=== PATIENT | female | born 1980 | race Caucasian/White ===

== ENCOUNTER 2017-01-16 06:46 | Day surgery (SDC) | payer OTHER ==
[~2017-01-16] VITALS: Ht 157.5 cm; Wt 54.4 kg
[2017-01-16] MEDS ORDERED: BUPIVACAINE-MPF 0.25% 30 ML VIAL INJ ONE (09:10)
[2017-01-16] MEDS ORDERED: DEXAMETHASONE 4 MG/ML VIAL IVP ONE (10:11)
[2017-01-16] MEDS ORDERED: SEVOFLURANE 250 ML BTL INH ONE (10:11)
[2017-01-16] MEDS ORDERED: ONDANSETRON 4 MG/2 ML VIAL IVP ONE ×2 (10:11→12:40)
[2017-01-16] MEDS ORDERED: PROPOFOL 200 MG/20 ML VIAL IV ONE (10:11)
[2017-01-16] MEDS ORDERED: KETOROLAC 30 MG/ML VIAL IVP ONE (10:11)
[2017-01-16] MEDS ORDERED: fentaNYL 0.05 MG/ML VIAL ONE (10:13)
[2017-01-16] MEDS ORDERED: HYDROmorphone 1 MG/ML AMP IVP PRN ×2 (10:40→11:35)
[2017-01-16] MEDS ORDERED: ONDANSETRON 4 MG/2 ML VIAL IVP PRN (10:40)
[2017-01-16] MEDS ORDERED: MORPHINE SULFATE 2 MG/ML SYR IVP PRN (11:35)
[2017-01-16] MEDS ORDERED: ONDANSETRON 4 MG/2 ML VIAL IV PRN (11:35)
[2017-01-16] MEDS ORDERED: MORPHINE SULFATE 4 MG/ML SYR IV PRN (11:35)
[2017-01-16] MEDS ORDERED: HYDROcodone/APAP 5/325 MG 1 TAB TAB PO PRN (11:35)
[2017-01-16] MEDS ORDERED: HYDROmorphone 1 MG/ML AMP IVP ONE (12:13)
== END 2017-01-16 13:25 | disposition home or self-care (01) ==
LOC: MMU 06:46 → MDS 06:46
PROVIDERS: ATTEND Surgery
DX: M67.432 Ganglion, left wrist (principal); Z79.899 Other long term (current) drug therapy
CPT/HCPCS: 25111; 71010; J0690; J1100; J1170; J1885; J2405; J2704; J3010; J3490; J7060; J7120; 88304

== ENCOUNTER 2017-02-23 18:51 | Emergency (ER) | payer OTHER ==
[~2017-02-23] VITALS: Ht 154.9 cm; Wt 55.5 kg
[2017-02-23 19:03] VITALS: BP 141/91
--- NOTE | 2017-02-23 19:25 | NUR ---
36/F C/O 12/31 RLQ PAIN RADIATING TO RT FLANK, ACUTE ONSET, GRADUALLY WORSENING SINCE 1300 TODAY. PT REPORTS N/V, DENIES HEMOTYPSIS, FEVER/CHILLS. ALSO REPORTS FEELING CONSTIPATED AND DYSURIA, DENIES HEMATURIA. BS ACTIVE X4, TENDERNESS TO RLQ NOTED. DENIES PMH/RX/OTC.
[2017-02-23] MEDS ORDERED: MORPHINE SULFATE 4 MG/ML SYR IVP ONE (19:35)
[2017-02-23] MEDS ORDERED: KETOROLAC 30 MG/ML VIAL IVP ONE ×2 (19:35→20:55)
[2017-02-23] MEDS ORDERED: NACL 0.9% 1,000 ML IV ONE (19:35)
[2017-02-23] MEDS ORDERED: ONDANSETRON 4 MG/2 ML VIAL IVP ONE (19:35)
[2017-02-23 19:49] LABS: BASOPHILS # (AUTO) 0.3 K/uL (0.00-0.22); EOSINOPHILS # (AUTO) 0.1 K/uL (0-0.4); EOSINOPHILS % (AUTO) 0.9 % (0.0-4.0); HEMATOCRIT 41.9 % (36-48); LYMPHOCYTES # (AUTO) 1.5 K/uL (2.5-16.5); LYMPHOCYTES % (AUTO) 15.6 % (20.5-51.1); MEAN CORPUSCULAR HEMOGLOBIN 30 pg (27-31); MEAN CORPUSCULAR HGB CONC 34 g/dL (33-37); MEAN CORPUSCULAR VOLUME 90 fL (80-94); MONOCYTES # (AUTO) 0.5 K/uL (0.8-1.0); MONOCYTES % (AUTO) 4.9 % (1.7-9.3); NEUTROPHILS # (AUTO) 6.9 K/uL (1.8-7.7); NEUTROPHILS % (AUTO) 75.6 % (42.2-75.2); PLATELET COUNT (AUTO) 215 K/uL (140-450); RED BLOOD CELL COUNT(AUTO) 4.67 MIL/uL (4.20-5.40); RED CELL DISTRIBUTION WIDTH 12.5 % (11.6-13.7); WHITE BLOOD COUNT (AUTO) 9.3 K/uL (4.8-10.8)
--- NOTE | 2017-02-23 19:49 | NUR ---
PT TAKEN TO CT
[2017-02-23 19:53] LABS: APPEARANCE,URINE CLEAR (CLEAR); BILIRUBIN,URINE NEGATIVE (NEGATIVE); BLOOD, URINE 2+ (NEGATIVE); LEUKOCYTE ESTERASE ,URINE NEGATIVE (NEGATIVE); NITRITE, URINE NEGATIVE (NEGATIVE); PH,URINE 5.5 (5.0-9.0); UGLUCOSE NEGATIVE (NEGATIVE)
[2017-02-23 19:54] LABS: COLOR,URINE STRAW (YELLOW)
[2017-02-23 19:59] LABS: RBC,URINE 0-5 (RARE) /HPF (0-5); WBC,URINE 0-5 (RARE) /HPF (0-5)
[2017-02-23 19:59] LABS: ANION GAP 13.8 (8-16); CARBON DIOXIDE 26.3 mmol/L (21-32); CREATININE 0.8 mg/dL (0.6-1.3); POTASSIUM 4.1 mmol/L (3.5-5.1)
[2017-02-23 20:05] LABS: ALBUMIN 4.2 g/dL (3.4-5.0); TOTAL BILIRUBIN 0.4 mg/dL (0.0-1.0)
[2017-02-23] MEDS ORDERED: HYDROcodone/APAP 5/325 MG 1 TAB TAB PO ONE (20:55)
--- NOTE | 2017-02-23 21:20 | NUR ---
Patient discharged with v/s stable. Written and verbal after care instructions given and explained. Patient alert, oriented and verbalized understanding of instructions. Ambulatory with steady gait. All questions addressed prior to discharge. ID band removed. Patient advised to follow up with PMD. Rx of NAPROXYN, ZOFRAN, NORCO, FLOMAX given. Patient educated on indication of medication including possible reaction and side effects. Opportunity to ask questions provided and answered. Addendum: 02/23/17 at 2149 by JUDE IV removed, catheter intact and site benign. Applied folded 4x4 gauze and tape to stop bleeding.
[2017-02-23 21:26] VITALS: BP 128/76
== END 2017-02-23 21:20 | disposition home or self-care (01) ==
LOC: MED 18:51
DX: N20.1 Calculus of ureter (principal)
CPT/HCPCS: 36415; 74176; 80053; 81001; 81025; 83690; 85025; 96361; 96374; 96375; 96376; 99285; J1885; J2270; J2405

== ENCOUNTER 2017-07-07 20:10 | Emergency (ER) | payer OTHER ==
[~2017-07-07] VITALS: Ht 157.5 cm; Wt 58.1 kg
[2017-07-07 20:11] VITALS: BP 125/74
--- NOTE | 2017-07-07 20:15 | NUR ---
TO LOBBY, A/W BED, AMB, STABLE , ERMD NOTED
--- NOTE | 2017-07-07 20:57 | NUR ---
PT AMBULATED TO ER BED 04
--- NOTE | 2017-07-07 22:36 | NUR ---
PT SENT TO U/S VIA W/C WITH [employer] AAOX4
--- NOTE | 2017-07-07 22:40 | NUR ---
PATIENT PRESENTS TO ED WITH AB PAIN . PT STATES VOMITING, DIZZINESS, PAINFUL URINATION, FOR A WEEK . SKIN IS PINK/WARM/DRY; AAOX4 WITH EVEN AND STEADY GAIT; LUNGS CLEAR BL; HR EVEN AND REGULAR; PT DENIES ANY FEVER, CP, SOB, OR COUGH AT THIS TIME; PATIENT STATES PAIN OF 8/10 AT THIS TIME; VSS; PATIENT POSITIONED FOR COMFORT; HOB ELEVATED; BEDRAILS UP X2; BED DOWN. ER MD MADE AWARE OF PT STATUS.
--- NOTE | 2017-07-07 22:50 | NUR ---
Patient being evaluated by physician at bedside.
[2017-07-07 23:06] LABS: APPEARANCE,URINE CLEAR (CLEAR); BILIRUBIN,URINE NEGATIVE (NEGATIVE); BLOOD, URINE TRACE-I (NEGATIVE); COLOR,URINE YELLOW (YELLOW); LEUKOCYTE ESTERASE ,URINE NEGATIVE (NEGATIVE); NITRITE, URINE NEGATIVE (NEGATIVE); UGLUCOSE NEGATIVE (NEGATIVE)
[2017-07-07 23:26] LABS: RBC,URINE 0-5 (RARE) /HPF (0-5); WBC,URINE 0-5 (RARE) /HPF (0-5)
[2017-07-07 23:40] VITALS: BP 124/72
--- NOTE | 2017-07-07 23:40 | NUR ---
Patient discharged with v/s stable. Written and verbal after care instructions given and explained. Patient alert, oriented and verbalized understanding of instructions. Ambulatory with steady gait. All questions addressed prior to discharge. ID band removed. Patient advised to follow up with PMD. Rx of MOTRIN, ZOFRAN given. Patient educated on indication of medication including possible reaction and side effects. Opportunity to ask questions provided and answered.
== END 2017-07-07 23:40 | disposition home or self-care (01) ==
LOC: MED 20:10
DX: R10.32 Left lower quadrant pain (principal); R11.10 Vomiting, unspecified; R42 Dizziness and giddiness
CPT/HCPCS: 74018; 81001; 81025; 99285

== ENCOUNTER 2017-12-23 11:25 | Emergency (ER) | payer OTHER ==
[~2017-12-23] VITALS: Ht 157.5 cm; Wt 56.7 kg
[2017-12-23 11:27] VITALS: BP 128/86
--- NOTE | 2017-12-23 11:42 | NUR ---
Patient ambulated to bed 8. RN evaluating patient at bedside.
--- NOTE | 2017-12-23 11:44 | NUR ---
left shoulder pain x 3 weeks, denies acute injury. denies numbness/tingling, cms+ reports sleeping on that side. med hx: none rx: none
--- NOTE | 2017-12-23 11:56 | NUR ---
Dr. Frias evaluating patient at bedside.
[2017-12-23] MEDS ORDERED: IBUPROFEN 600 MG TAB PO ONE (12:10)
[2017-12-23 14:33] VITALS: BP 122/88
== END 2017-12-23 14:34 | disposition home or self-care (01) ==
LOC: MED 11:25
DX: S46.912A Strain of unspecified muscle, fascia and tendon at shoulder and upper arm level, left arm, initial encounter (principal); X58.XXXA Exposure to other specified factors, initial encounter; Y93.89 Activity, other specified; Y92.89 Other specified places as the place of occurrence of the external cause; Y99.8 Other external cause status
CPT/HCPCS: 73030; 99284

== ENCOUNTER 2018-03-24 19:42 | Emergency (ER) | payer OTHER ==
[~2018-03-24] VITALS: Ht 157.5 cm; Wt 58.5 kg
--- NOTE | 2018-03-24 19:48 | NUR ---
PT TAKEN TO BED 12
[2018-03-24 19:52] VITALS: BP 153/97
--- NOTE | 2018-03-24 19:55 | NUR ---
Note undone in ED - 03/24/18 at 2109 by CARLOTTA PATIENT PRESENTS TO ED WITH LOWER ABD AND VAGINAL PAIN THAT RADIATES DOWN TO KNEES. PT STATES PRESSURE LIKE PAIN THAT STARTED 30MIN AGO, AND WAS DIAGNOSED WITH OVARIAN CYSTS 2 WEEKS AGO. ABD IS FLAT, NON-TENDER, WITH BOWEL SOUNDS ACTIVE IN ALL 4 QUADRANTS; DENIES N/V/D; SKIN IS PINK/WARM/DRY; AAOX4 WITH EVEN AND STEADY GAIT; PT DENIES ANY FEVER, CP, SOB, OR COUGH AT THIS TIME; PATIENT STATES PAIN OF 10/10 AT THIS TIME; VSS; PATIENT POSITIONED FOR COMFORT; HOB ELEVATED; BEDRAILS UP X2; BED DOWN. ER MADE AWARE OF PT STATUS. Addendum: 03/24/18 at 210 by CARLOTTA Amendment undone in ED - 03/24/18 at 2109 by CARLOTTA PT STATES PMH OF HEP B
--- NOTE | 2018-03-24 19:55 | NUR ---
PATIENT PRESENTS TO ED WITH LOWER ABD AND VAGINAL PAIN THAT RADIATES DOWN TO KNEES. PT STATES PRESSURE LIKE PAIN THAT STARTED 30MIN AGO, AND WAS DIAGNOSED WITH OVARIAN CYSTS 2 WEEKS AGO. ABD IS FLAT, NON-TENDER, WITH BOWEL SOUNDS ACTIVE IN ALL 4 QUADRANTS; DENIES N/V/D; SKIN IS PINK/WARM/DRY; AAOX4 WITH EVEN AND STEADY GAIT; PT DENIES ANY FEVER, CP, SOB, OR COUGH AT THIS TIME; PATIENT STATES PAIN OF 10/10 AT THIS TIME; VSS; PATIENT POSITIONED FOR COMFORT; HOB ELEVATED; BEDRAILS UP X2; BED DOWN. ER MD MADE AWARE OF PT STATUS.
--- NOTE | 2018-03-24 20:23 | NUR ---
Dr. Swan evaluating patient at bedside.
[2018-03-24] MEDS ORDERED: KETOROLAC 30 MG/ML VIAL IM ONE ×2 (20:30→22:20)
[2018-03-24] MEDS ORDERED: HYDROcodone/APAP 5/325 MG 1 TAB TAB PO ONE (20:30)
--- NOTE | 2018-03-24 20:41 | NUR ---
Ultrasound at bedside.
--- NOTE | 2018-03-24 21:13 | NUR ---
PT IN BED WITH AT BEDSIDE, SIDE RAILS UP X2, VSS, CONTINUE TO MONITOR
[2018-03-24 22:35] VITALS: BP 118/71
--- NOTE | 2018-03-24 22:36 | NUR ---
Patient discharged with v/s stable. Written and verbal after care instructions given and explained. Patient alert, oriented and verbalized understanding of instructions. Ambulatory with steady gait. All questions addressed prior to discharge. ID band removed. Patient advised to follow up with PMD. Rx of NAPROSYN AND NORCO given. Patient educated on indication of medication including possible reaction and side effects. Opportunity to ask questions provided and answered.
== END 2018-03-24 22:36 | disposition home or self-care (01) ==
LOC: MED 19:42
DX: R10.2 Pelvic and perineal pain (principal)
CPT/HCPCS: 76830; 81002; 81025; 96372; 99284; J1885; Q0092

== ENCOUNTER 2019-02-01 14:33 | Emergency (ER) | payer OTHER ==
[~2019-02-01] VITALS: Ht 157.5 cm; Wt 55.8 kg
[2019-02-01 14:37] VITALS: BP 114/72
--- NOTE | 2019-02-01 14:43 | NUR ---
PT AMBULATED TO BED 07
--- NOTE | 2019-02-01 14:48 | NUR ---
38F C/O DIZZY, WEAK, N/V X 3 DAYS. PT IS NOW, LMP 12/03/18, TARAH 09/09/19. VISITED ANOTHER HOSPITAL 3 WKS AGO-THEY TOLD PT SHE IS AT RISK FOR MISCARRIAGE. NO PMHX. SKIN IS PINK/WARM/DRY; AAOX4 WITH EVEN AND STEADY GAIT; LUNGS CLEAR BL; HR EVEN AND REGULAR; PT DENIES ANY FEVER, CP, SOB, OR COUGH AT THIS TIME; VSS; PATIENT POSITIONED FOR COMFORT; HOB ELEVATED; BEDRAILS UP X2; BED DOWN. ER MD MADE AWARE OF PT STATUS.
--- NOTE | 2019-02-01 15:08 | NUR ---
Dr. Orr evaluating patient at bedside.
[2019-02-01] MEDS ORDERED: METOCLOPRAMIDE 10 MG/2 ML INJ VIAL IVP ONE (15:15)
[2019-02-01] MEDS ORDERED: ACETAMINOPHEN EXTRA STRENGTH 500 MG TAB PO ONE (15:15)
[2019-02-01] MEDS ORDERED: NACL 0.9% 1,000 ML IV ONE (15:15)
[2019-02-01 15:33] LABS: HEMOGLOBIN 12.9 g/dL (12.0-16.0); MEAN CORPUSCULAR HEMOGLOBIN 31 pg (27-31); MEAN CORPUSCULAR HGB CONC 33 g/dL (33-37); MEAN CORPUSCULAR VOLUME 92.3 fL (80-94); PLATELET COUNT (AUTO) 197 K/uL (140-450); RED BLOOD CELL COUNT(AUTO) 4.22 MIL/uL (4.20-5.40); RED CELL DISTRIBUTION WIDTH 13.1 % (11.6-13.7); WHITE BLOOD COUNT (AUTO) 9.2 K/uL (4.8-10.8)
[2019-02-01 15:53] LABS: ALBUMIN 3.4 g/dL (3.4-5.0); ANION GAP 12.6 (8-16); CARBON DIOXIDE 26.4 mmol/L (21-32); CREATININE 0.9 mg/dL (0.6-1.3); TOTAL BILIRUBIN 0.3 mg/dL (0.0-1.0)
[2019-02-01 16:00] LABS: LYMPHOCYTES % (MANUAL) 14 % (20-46); MONOCYTES % (MANUAL) 3 % (5-12)
[2019-02-01 16:25] VITALS: BP 121/74
--- NOTE | 2019-02-01 16:25 | NUR ---
Patient discharged with v/s stable. Written and verbal after care instructions given and explained. Patient alert, oriented and verbalized understanding of instructions. Ambulatory with steady gait. All questions addressed prior to discharge. ID band removed. Patient advised to follow up with PMD. Rx of REGLAN given. Patient educated on indication of medication including possible reaction and side effects. Opportunity to ask questions provided and answered.
[2019-02-01 17:39] LABS: APPEARANCE,URINE CLOUDY (CLEAR); BILIRUBIN,URINE NEGATIVE (NEGATIVE); BLOOD, URINE NEGATIVE (NEGATIVE); COLOR,URINE YELLOW (YELLOW); LEUKOCYTE ESTERASE ,URINE NEGATIVE (NEGATIVE); NITRITE, URINE NEGATIVE (NEGATIVE); UGLUCOSE NEGATIVE (NEGATIVE)
[2019-02-01 17:56] LABS: RBC,URINE NONE SEEN /HPF (0-5); URINE AMORPHOUS URATE 4+ /HPF (None Seen); WBC,URINE 0-5 /HPF (0-5)
== END 2019-02-01 16:25 | disposition home or self-care (01) ==
LOC: MED 14:33
DX: O21.9 Vomiting of pregnancy, unspecified (principal); O26.891 Other specified pregnancy related conditions, first trimester; R19.7 Diarrhea, unspecified; R42 Dizziness and giddiness; R51 Headache; Z3A.08 8 weeks gestation of pregnancy
CPT/HCPCS: 36415; 80053; 81001; 81025; 82948; 85025; 87086; 96361; 96374; 99283; J2765; J7030

== ENCOUNTER 2019-02-13 22:23 | Emergency (ER) | payer OTHER ==
[~2019-02-13] VITALS: Ht 157.5 cm; Wt 55.3 kg
[2019-02-13 22:45] VITALS: BP 132/77
--- NOTE | 2019-02-13 22:48 | NUR ---
TO LOBBY A/W BED AMBULATORY
--- NOTE | 2019-02-13 23:25 | NUR ---
PT AMBULATED TO BED 4
--- NOTE | 2019-02-13 23:30 | NUR ---
38 Y/O F PRESENTS TO ER C/O SUPRAPUBIC PAIN SINCE TODAY. PER PT SHE IS 10 WEEKS , RECEIVING CARE. PT HAD ULTRASOUND DONE ON SUNDAY AND PT STATED, "MY OBGYN DR. AGUILERA STATED THERE IS NO MORE BABY BUT I WANT TO CHECK BECAUSE I AM HAVING PAIN" SUPRAPUBIC PAIN LEVEL, 10/10, PRESSURE AND CRAMPING THAT COMES AND GOES. DENIES VAGINAL BLEEDING. PT HAS VAGINAL DISCHARGE, WHITE AND THICK. ALLERGIES: NKA. MED HX: NONE. SAFETY MEASURES IN PLACE. WAITING FOR ERMD TO EVALUATE PT.
--- NOTE | 2019-02-13 23:52 | NUR ---
Dr. Swan examining patient.
[2019-02-14] MEDS ORDERED: ACETAMINOPHEN 325 MG TAB PO ONE
[2019-02-14 00:27] LABS: BASOPHILS % (AUTO) 0.4 % (0.0-2.0); EOSINOPHILS # (AUTO) 0.2 K/uL (0-0.4); HEMATOCRIT 41.2 % (36-48); HEMOGLOBIN 13.7 g/dL (12.0-16.0); LYMPHOCYTES # (AUTO) 1.5 K/uL (2.5-16.5); LYMPHOCYTES % (AUTO) 18.2 % (20.5-51.1); MEAN CORPUSCULAR HEMOGLOBIN 31 pg (27-31); MEAN CORPUSCULAR HGB CONC 33 g/dL (33-37); MEAN CORPUSCULAR VOLUME 93.1 fL (80-94); MONOCYTES # (AUTO) 0.6 K/uL (0.8-1.0); NEUTROPHILS # (AUTO) 5.9 K/uL (1.8-7.7); NEUTROPHILS % (AUTO) 72.4 % (42.2-75.2); PLATELET COUNT (AUTO) 227 K/uL (140-450); RED BLOOD CELL COUNT(AUTO) 4.43 MIL/uL (4.20-5.40); RED CELL DISTRIBUTION WIDTH 13.5 % (11.6-13.7); WHITE BLOOD COUNT (AUTO) 8.1 K/uL (4.8-10.8)
--- NOTE | 2019-02-14 00:30 | NUR ---
PT RESTING IN BED. VSS. SIGNIFICANT OTHER AT BEDSIDE.
--- NOTE | 2019-02-14 01:02 | NUR ---
ULTRASOUND AT PT BEDSIDE
[2019-02-14 01:07] LABS: APPEARANCE,URINE SL CLOUDY (CLEAR); BILIRUBIN,URINE NEGATIVE (NEGATIVE); BLOOD, URINE NEGATIVE (NEGATIVE); COLOR,URINE YELLOW (YELLOW); LEUKOCYTE ESTERASE ,URINE NEGATIVE (NEGATIVE); NITRITE, URINE NEGATIVE (NEGATIVE); PH,URINE 6.5 (5.0-9.0); UGLUCOSE NEGATIVE (NEGATIVE)
--- NOTE | 2019-02-14 01:26 | NUR ---
TRANSFER OF CARE AND REPORT GIVEN TO NARCISO AL
[2019-02-14 04:18] VITALS: BP 114/74
--- NOTE | 2019-02-14 04:18 | NUR ---
Patient discharged with v/s stable. Written and verbal after care instructions given and explained. Patient alert, oriented and verbalized understanding of instructions. Ambulatory with steady gait. All questions addressed prior to discharge. ID band removed. Patient advised to follow up with PMD. Rx of ACETAMINOPHEN WAS given. Patient educated on indication of medication including possible reaction and side effects. Opportunity to ask questions provided and answered.
== END 2019-02-14 04:18 | disposition home or self-care (01) ==
LOC: MED 22:23
DX: O20.0 Threatened abortion (principal); Z3A.10 10 weeks gestation of pregnancy; Z87.42 Personal history of other diseases of the female genital tract
CPT/HCPCS: 36415; 76817; 81003; 81025; 84702; 85025; 86900; 86901; 99284; Q0092

== ENCOUNTER 2019-02-14 15:35 | Observation (INO) | payer OTHER ==
[~2019-02-14] VITALS: Ht 157.5 cm; Wt 53.5 kg
[2019-02-14 15:53] VITALS: BP 121/76
--- NOTE | 2019-02-14 16:05 | NUR ---
Pt placed in bed 7.
--- NOTE | 2019-02-14 16:10 | NUR ---
REFFERED BY DR. AGUILERA FOR D&C FOR [facility]. A1 . DENIES N/V/D; SKIN IS PINK/WARM/DRY; AAOX4 WITH EVEN AND STEADY GAIT; LUNGS CLEAR BL; HR EVEN AND REGULAR; PT DENIES ANY FEVER, CP, SOB, OR COUGH AT THIS TIME; PATIENT STATES PAIN OF 10/10 AT THIS TIME; VSS; PATIENT POSITIONED FOR COMFORT; HOB ELEVATED; BEDRAILS UP X2; BED DOWN. ER MD MADE AWARE OF PT STATUS.
[2019-02-14 17:01] LABS: BASOPHILS % (AUTO) 0.4 % (0.0-2.0); EOSINOPHILS # (AUTO) 0.1 K/uL (0-0.4); EOSINOPHILS % (AUTO) 0.8 % (0.0-4.0); HEMATOCRIT 42.3 % (36-48); HEMOGLOBIN 13.9 g/dL (12.0-16.0); LYMPHOCYTES # (AUTO) 1.4 K/uL (2.5-16.5); LYMPHOCYTES % (AUTO) 18.9 % (20.5-51.1); MEAN CORPUSCULAR HEMOGLOBIN 31 pg (27-31); MEAN CORPUSCULAR HGB CONC 33 g/dL (33-37); MEAN CORPUSCULAR VOLUME 93.3 fL (80-94); MONOCYTES # (AUTO) 0.5 K/uL (0.8-1.0); MONOCYTES % (AUTO) 7.4 % (1.7-9.3); NEUTROPHILS # (AUTO) 5.3 K/uL (1.8-7.7); NEUTROPHILS % (AUTO) 72.5 % (42.2-75.2); PLATELET COUNT (AUTO) 225 K/uL (140-450); RED BLOOD CELL COUNT(AUTO) 4.53 MIL/uL (4.20-5.40); RED CELL DISTRIBUTION WIDTH 13.2 % (11.6-13.7); WHITE BLOOD COUNT (AUTO) 7.3 K/uL (4.8-10.8)
[2019-02-14 17:05] LABS: APPEARANCE,URINE CLEAR (CLEAR); BILIRUBIN,URINE NEGATIVE (NEGATIVE); BLOOD, URINE NEGATIVE (NEGATIVE); COLOR,URINE YELLOW (YELLOW); LEUKOCYTE ESTERASE ,URINE NEGATIVE (NEGATIVE); NITRITE, URINE NEGATIVE (NEGATIVE); PH,URINE 5.5 (5.0-9.0); UGLUCOSE NEGATIVE (NEGATIVE)
[2019-02-14 17:15] LABS: ANION GAP 17.6 (8-16); CREATININE 0.6 mg/dL (0.6-1.3); POTASSIUM 3.6 mmol/L (3.5-5.1)
[2019-02-14 17:23] LABS: TOTAL BILIRUBIN 0.5 mg/dL (0.0-1.0)
--- NOTE | 2019-02-14 18:00 | NUR ---
PT RESTING IN BED, NO S/S OF RESPIRTORY DISTRESS NOTED. AT BEDSIDE.
--- NOTE | 2019-02-14 19:05 | NUR ---
ENDORSED TO BERNARDO STUART
[2019-02-14] MEDS: LACTATED RINGERS 1,000 ML IV SCH (21:14)
--- NOTE | 2019-02-14 21:45 | NUR ---
PT ADMITTED TO OB. PT PICKED UP BY MARY STUART; TRANSFERRED VIA WHEELCHAIR, STABLE CONDITION. REPORT GIVEN TO MARY STUART. PT CARE TRANFERRED TO RECEIVING RN.
[2019-02-14] MEDS ORDERED: fentaNYL 0.05 MG/ML VIAL ONE (22:15)
[2019-02-14] MEDS ORDERED: KETOROLAC 15 MG/ML VIAL IVP SCH (23:00)
[2019-02-14 23:25] VITALS: BP 122/65
--- NOTE | 2019-02-14 23:25 | NUR ---
RECIEVED PT FROM OR / GURNEY , A LITTLE BIT SLEEPY BUT EASILY AWAKEABLE AND COVERSANT , WITH BERABLE POST OP PAIN SHE SAID , NO ACTIVE BLEEDING NOTED , NID - V/S VERNON HOOD AT BEDSIDE , PLAN OF CARE DISCUSSED AND VERBALIZE UNDERSTANDING - CALL LIGHT WITHIN REACH . WILL CONT. TO MONITOR.
--- NOTE | 2019-02-15 01:00 | NUR ---
FULLY AWAKE . ATE SANDWICH -TOLERATED. C/O OF PAIN -WILL REFER TO DR. AGUILERA FOR PAIN MEDICATION.
[2019-02-15] MEDS ORDERED: oxyCODONE/APAP 5/325 MG 1 TAB TAB PO STA (01:16)
[2019-02-15] MEDS ORDERED: oxyCODONE/APAP 5/325 MG 1 TAB TAB PO SCH (01:22)
--- NOTE | 2019-02-15 01:34 | NUR ---
PERCOCET TAB. / ORAL GIVEN FOR PAIN STAT DOSE OREDERED, WILL CONT. TO MONITOR.
--- NOTE | 2019-02-15 01:48 | NUR ---
CALL TO DR. AGUILERA FOR CLARIFICATION OF DISCHARGE ORDER OF DR. GREGORIO . I INFORMED DR. AGUILERA ABOUT DISCHARGE ORDER OF DR. GREGORIO BUT DR. AGUILERA SAID IT'S UNUSUAL TO HIM TO DISCHARGE THE PT. AT 2AM IN THE MORNING , HE PREFER THE PT TO STAY IN THE HOSPITAL TILL 6AM OR BEYOND , BECAUSE PT. IS JUST POST D&C .
[2019-02-15 04:00] VITALS: BP 111/60
--- NOTE | 2019-02-15 04:00 | NUR ---
MADE ROUNDS, SLEEPING.
[2019-02-15] MEDS: LACTATED RINGERS 1,000 ML IV SCH (05:14)
--- NOTE | 2019-02-15 07:30 | NUR ---
ENDORSED TO AM SHIFT FOR CONT. OF CARE WITH STABLE CONDITION , ALMOST SCANTY BLEEDING.
--- NOTE | 2019-02-15 07:35 | NUR ---
RECEIVED PT FROM COMBATANT SWIMMER NURSE, JASMIN, PT IS AWAKE AND LYING ON THE BED WITH PERIPHERAL LINE ON THE LEFT WRIST G. 22 ON SALINE LOCK, PT DENIES PAIN AND NO SIGN OF DISTRESS NOTED, WILL CONTINUE TO MONITOR PT.
[2019-02-15 08:00] VITALS: BP 124/71
--- NOTE | 2019-02-15 08:15 | NUR ---
PT WAS ASSISTED TO THE BATHROOM, DENIES PAIN AND SCANT OF BLOOD WAS NOTED ON THE SANITARY PAD,WILL CONTINUE TO MONITOR PT.
--- NOTE | 2019-02-15 10:28 | NUR ---
CALLED DR. AGUILERA AND LEFT A MESSAGE IN HIS VOICEMAIL TO INFORM THAT PT IS IN PAIN OF A RATE OF 8/, AWAITING FOR MD CALL BACK.
--- NOTE | 2019-02-15 12:35 | NUR ---
DISCHARGE INSTRUCTION GIVEN AND EXPLAINED TO PT, PT AWARE THAT DOCTOR HAD CALLED IN PRESCRIPTION TO HER PHARMACY, PT STATES SHE WILL GO PICK IT UP NOW, PT DENIES ANY BLEEDING NOW, IV DC'D CATH TIP INTACT, BLEEDING CONTROLLED, ALL BELONGINGS COLLECTED BY PT, PT EATING LUNCH WITHOUT PROBLEM, UP AMBULATES WITH STEADY GAIT, DC HOME NOW WITH VIA PRIVATE VEHICLE.
--- NOTE | 2019-02-19 15:31 | NUR ---
GERRY contacted patient's PCP and made appointment with Dr. Richard Leblanc [phone]. GERRY spoke with Robyn and was made aware that appointment has already been made for 02/24/2019 @ 10:40AM at [address] [place] [id number]. Patient has already been notified. GERRY/CM will follow up as needed.
== END 2019-02-15 12:35 | disposition home or self-care (01) ==
LOC: MED 15:35 → MTU 21:14 → INTOOBSV 21:14 → MTU 21:39
PROVIDERS: ADMIT Obstetrics & Gynecology; ATTEND Obstetrics & Gynecology
DX: O02.1 Missed abortion (principal)
CPT/HCPCS: 36415; 59820; 80053; 81003; 81025; 84702; 85025; 87081; 99283; G0378; J3010; J7030; 88305

== ENCOUNTER 2019-12-27 02:00 | Emergency (ER) | payer OTHER ==
[~2019-12-27] VITALS: Ht 157.5 cm; Wt 55.8 kg
[2019-12-27 02:05] VITALS: BP 144/97
--- NOTE | 2019-12-27 02:14 | NUR ---
PT TAKEN TO ER BED 11
--- NOTE | 2019-12-27 02:18 | NUR ---
39 year old female presenting to ED with c/o 10/10 aching, stabbing headache that radiating to the posterior region of the neck x 1 day. states feeling of nausea and had x 1 episode vomiting today. pt is a/o x4, denies blurry vision. RRR. heart sounds even and regular. abdomen soft and nontender. denies constipation or diarrhea. awaiting MSE. pmhx: migraine allx: norco
--- NOTE | 2019-12-27 02:24 | NUR ---
ERMD AT BEDSIDE EVALUATING PT
[2019-12-27] MEDS ORDERED: KETOROLAC 30 MG/ML VIAL IM ONE (02:30)
[2019-12-27] MEDS ORDERED: ONDANSETRON 4 MG ODT PO ONE (02:30)
--- NOTE | 2019-12-27 03:08 | NUR ---
urine collected and sent to lab
[2019-12-27 03:17] LABS: APPEARANCE,URINE CLEAR (CLEAR); BILIRUBIN,URINE NEGATIVE (NEGATIVE); BLOOD, URINE NEGATIVE (NEGATIVE); COLOR,URINE YELLOW (YELLOW); LEUKOCYTE ESTERASE ,URINE NEGATIVE (NEGATIVE); NITRITE, URINE NEGATIVE (NEGATIVE); UGLUCOSE NEGATIVE (NEGATIVE)
--- NOTE | 2019-12-27 03:26 | NUR ---
ermd at bedside
[2019-12-27 03:27] LABS: RBC,URINE 0-5 /HPF (0-5); WBC,URINE 0-5 /HPF (0-5)
[2019-12-27] MEDS ORDERED: fentaNYL citrate 0.05 MG/ML VIAL NS ONE (03:30)
[2019-12-27 04:14] VITALS: BP 144/97
--- NOTE | 2019-12-27 04:14 | NUR ---
Patient discharged with v/s stable. Written and verbal after care instructions given and explained. Patient alert, oriented and verbalized understanding of instructions. Ambulatory with steady gait. All questions addressed prior to discharge. ID band removed. Patient advised to follow up with PMD. Rx of NAPROSYN AND ZOFRAN given. Patient educated on indication of medication including possible reaction and side effects. Opportunity to ask questions provided and answered.
== END 2019-12-27 04:14 | disposition home or self-care (01) ==
LOC: MED 02:00
DX: G43.909 Migraine, unspecified, not intractable, without status migrainosus (principal); R11.0 Nausea; Z98.890 Other specified postprocedural states; Z88.5 Allergy status to narcotic agent
CPT/HCPCS: 81001; 81025; 87086; 96372; 99283; J1885; J3010; Q0162

== ENCOUNTER 2021-10-24 15:27 | Emergency (ER) | payer OTHER ==
[~2021-10-24] VITALS: Ht 154.9 cm; Wt 57.2 kg
[2021-10-24 15:33] VITALS: BP 132/87
[2021-10-24] MEDS ORDERED: METOCLOPRAMIDE 10 MG TAB PO ONE (16:05)
[2021-10-24] MEDS ORDERED: KETOROLAC 30 MG/ML VIAL IM ONE (16:05)
[2021-10-24] MEDS ORDERED: MECLIZINE 25 MG TAB PO ONE (16:05)
--- NOTE | 2021-10-24 16:05 | NUR ---
SEEN BY STEVE KESSLER IN TRIAGE
[2021-10-24 16:28] LABS: BASOPHILS % (AUTO) 0.7 % (0.0-2.0); EOSINOPHILS # (AUTO) 0.2 K/uL (0-0.4); EOSINOPHILS % (AUTO) 2.7 % (0.0-4.0); LYMPHOCYTES # (AUTO) 1.4 K/uL (2.5-16.5); LYMPHOCYTES % (AUTO) 20.6 % (20.5-51.1); MEAN CORPUSCULAR HEMOGLOBIN 30 pg (27-31); MEAN CORPUSCULAR HGB CONC 33 g/dL (33-37); MEAN CORPUSCULAR VOLUME 90.8 fL (80-94); MONOCYTES # (AUTO) 0.4 K/uL (0.8-1.0); MONOCYTES % (AUTO) 5.9 % (1.7-9.3); NEUTROPHILS # (AUTO) 4.7 K/uL (1.8-7.7); NEUTROPHILS % (AUTO) 70.1 % (42.2-75.2); PLATELET COUNT (AUTO) 212 K/uL (140-450); RED BLOOD CELL COUNT(AUTO) 4.63 MIL/uL (4.20-5.40); RED CELL DISTRIBUTION WIDTH 13.4 % (11.6-13.7); WHITE BLOOD COUNT (AUTO) 6.7 K/uL (4.8-10.8)
[2021-10-24 16:43] LABS: CARBON DIOXIDE 29.5 mmol/L (21-32); CREATININE 0.6 mg/dL (0.6-1.3); POTASSIUM 4.5 mmol/L (3.5-5.1)
--- NOTE | 2021-10-24 17:01 | NUR ---
PT AMBULATED TO BATHROOM
--- NOTE | 2021-10-24 17:11 | NUR ---
SWABS AND URINE HANDED TO LAB
[2021-10-24] MEDS ORDERED: KETOROLAC 30 MG/ML VIAL ONE (17:13)
[2021-10-24] MEDS ORDERED: MECLIZINE 25 MG TAB ONE (17:14)
[2021-10-24] MEDS ORDERED: METOCLOPRAMIDE 10 MG TAB ONE (17:14)
[2021-10-24] MEDS ORDERED: IBUP-2218 PO (18:12)
[2021-10-24 18:22] VITALS: BP 124/74
--- NOTE | 2021-10-24 18:23 | NUR ---
Patient discharged with v/s stable. Written and verbal after care instructions ABOUT MIGRAINES given and explained. Patient alert, oriented and verbalized understanding of instructions. Ambulatory with steady gait. All questions addressed prior to discharge. ID band removed. Patient advised to follow up with PMD. Rx of MOTRIN given. Patient educated on indication of medication including possible reaction and side effects. Opportunity to ask questions provided and answered.
== END 2021-10-24 18:23 | disposition home or self-care (01) ==
LOC: MED 15:27
DX: G43.909 Migraine, unspecified, not intractable, without status migrainosus (principal); Z20.822 Contact with and (suspected) exposure to COVID-19; R42 Dizziness and giddiness; Z79.891 Long term (current) use of opiate analgesic
CPT/HCPCS: 36415; 80048; 81002; 81025; 85025; 87426; 96372; 99283; J1885; J8597